=== PATIENT | female | born 1960 | race Caucasian/White ===

== ENCOUNTER 2016-09-16 19:14 | Emergency (ER) | payer BC ==
[~2016-09-16] VITALS: Ht 154.9 cm; Wt 64.9 kg
[~2016-09-16 19:14] MED LIST: LRT5 PO
[2016-09-16 19:24] VITALS: BP 163/91; PULSE 61; TEMP 36.8; O2SAT 95; Ht 154.9 cm; Wt 64.9 kg
[2016-09-16] MEDS ORDERED: XYLOCAINE 1%/SOD BICARB 20 ML VIAL INFIL ONE (19:33)
[2016-09-16] MEDS ORDERED: ACETAMINOPHEN 500 MG TAB PO STA (19:51)
--- NOTE | 2016-09-16 20:11 | DIAGNOSTIC IMAGING REPORT ---
MAXILLOFACIAL CT CT DOSE: 1300.83 mGy.cm HISTORY: Jaw pain s/p trip and fall TECHNIQUE: Multiaxial CT images of the maxillofacial region were performed and reformatted in the coronal plane without the use of contrast. COMPARISON: None. FINDINGS: The visualized cervical spine, skull base, pterygoid plates, nasal bones, lamina papyracea, orbital floors, mandible, and zygomatic arches are intact. No fractures. The orbits are unremarkable. A 3 mm focal defect within the lateral wall of the left max a sinus. This is of doubtful clinical significance. Mild mucosal thickening within the maxillary sinuses and partial opacification of the ethmoid air cells. The mastoid air cells are clear. Focal skin laceration with soft tissue swelling within the right anterior chain. IMPRESSION: No fractures within the maxillofacial region. Focal skin laceration with soft tissue swelling within the right anterior chin. Electronically signed by: Sukhdeep Paul M.D. 09/16/2016 8:10 PM Dictated Date/Time: 09/16/2016 8:01 PM
--- NOTE | 2016-09-16 20:37 | EMERGENCY ROOM VISIT NOTE ---
History First contact with patient: 19:31 Chief Complaint: LACERATION/CUT (SUT/DERMABOND) Stated Complaint: FALL LAC TO CHIN Nursing Triage Summary: Pt reports she fell, tripped and hit face. pain to right jaw up. Lac to chin. abrasion to right elbow. denies loc History of Present Illness The patient is a 56 year old female who presents to the Emergency Room with complaints of injuries after she tripped and fell while walking out of [facility] . She reports tripping on an uneven sidewalk and falling face first to the ground. They believe that she fell onto the curb. The patient complains of a cut under the chin as well as right-sided jaw pain. She denies any significant chest or neck pain. She does report an abrasion to the right elbow , but denies any significant worsening pain with range of motion of the elbow. She rates her discomfort a 7 out of 10. She denies any loss of consciousness, headache, nausea or blurred vision. Tetanus immunization is up-to-date. Review of Systems 10 system review was performed and was negative except for pertinent positives and negatives as indicated in history of present illness Past Medical/Surgical History Medical Problems: (1) Pneumonia Surgical Problems: (1) History of hysterectomy Family History No significant family history Social History Smoking Status: Former Smoker Alcohol Use: none Marital Status: Occupation Status: employed Current/Historical Medications Scheduled Hydrocodone/Acetaminophen 5MG/500MG (Vicodin 5MG/500MG), 1-2 TAB PO Q4-6HR PRN Miscellaneous Medications None (Patient States No Home Meds) Allergies Coded Allergies: No Known Allergies (Verified Allergy, Unknown, 11/07/03) Physical Exam Vital Signs Date Time Temp Pulse Resp B/P Pulse Ox O2 Delivery O2 Flow Rate FiO2 09/16/16 19:24 36.8 61 18 163/91 95 Room Air Physical Exam CONSTITUTIONAL: Healthy and well nourished. Alert and oriented X 3 with positive affect. Patient appears in moderate discomfort from pain. HEENT: Examination shows a 1 cm laceration under the right chin region. Movement of the mandible worsens her discomfort. She has no focal tenderness over the TMJ. Pupils equal, round and reactive. No epistaxis, subconjunctival hemorrhage, hemotympanum, raccoon's eyes or Lowe sign. NECK: The patient has generalized tenderness to palpation of the right lateral and right anterolateral cervical musculature. She has no focal tenderness through the central cervical spine or paraspinous muscles. RESPIRATORY: Clear to auscultation bilaterally with no wheezing, crackles, rhonchi or stridor. CARDIOVASCULAR: Regular rate and rhythm with no murmurs, rubs or gallops. GASTROINTESTINAL: Bowel sounds present in all quadrants. Soft and nontender to palpation. MUSCULOSKELETAL: Examination shows minimal tenderness to palpation over the right anterior chest wall, clavicle and acromioclavicular joint. Range of motion of the right shoulder and elbow does not cause any discomfort. She has a superficial abrasion to the right posterior elbow. INTEGUMENTARY: No rash or other significant dermatologic conditions noted. NEUROLOGIC: No focal neurologic deficits noted. Right hand and fingers are sensory intact. Medical Decision & Procedures ER Provider Diagnostic Interpretation: Noncontrast CT of the facial bones does not show any mandible bone fracture or TMJ dislocation. Radiologist report is as follows: MAXILLOFACIAL CT CT DOSE: 1300.83 mGy.cm HISTORY: Jaw pain s/p trip and fall TECHNIQUE: Multiaxial CT images of the maxillofacial region were performed and reformatted in the coronal plane without the use of contrast. COMPARISON: None. FINDINGS: The visualized cervical spine, skull base, pterygoid plates, nasal bones, lamina papyracea, orbital floors, mandible, and zygomatic arches are intact. No fractures. The orbits are unremarkable. A 3 mm focal defect within the lateral wall of the left max a sinus. This is of doubtful clinical significance. Mild mucosal thickening within the maxillary sinuses and partial opacification of the ethmoid air cells. The mastoid air cells are clear. Focal skin laceration with soft tissue swelling within the right anterior chain. IMPRESSION: No fractures within the maxillofacial region. Focal skin laceration with soft tissue swelling within the right anterior chin. Medications Administered Medications (Trade) Dose Ordered Sig/Kaylee Route Start Time Stop Time Status Last Admin Dose Admin Acetaminophen (Tylenol Tab) 1,000 mg NOW STAT PO 09/16/16 19:51 09/16/16 19:52 DC 09/16/16 20:02 1,000 MG Procedure Chin laceration repair was performed under local anesthesia after receiving verbal consent from the patient. Using buffered 1% lidocaine without epinephrine, good local anesthesia was administered. The wound was then peripherally cleansed with iodine, then irrigated with normal saline. Exploration of the wound does not show any underlying debris. The wound was then approximated using 6-0 nylon simple interrupted sutures 4. Bacitracin was applied. ED Course Patient history and physical exam were performed. Nurse's notes were reviewed. Vital signs were reviewed and were normal. An ice pack was applied. The patient initially refused any analgesics, but then agreed to taking Tylenol [address] of the facial bones was normal. Laceration repair was performed under local anesthesia. The patient was provided additional verbal and written wound care instructions. Ice for swelling. Ibuprofen and Tylenol in alternating fashion as needed for pain. Suture removal in 5-7 days, or seek reevaluation sooner for any signs of wound infection. I also encouraged a soft food diet to minimize any worsening mandible muscular pain. The patient was happy with plan of care, voiced understanding of all discharge instructions, and rated her pain a 4 out of 10 at the time of discharge. Impression Primary Impression: Facial laceration Additional Impressions: Mandible contusion Cervical strain, acute Fall from slip, trip, or stumble Departure Information Referrals Jessica Savage PA-C (PCP) Patient Instructions My [facility] Problem Qualifiers Primary Impression: Facial laceration Encounter type: initial encounter Qualified Codes: S01.81XA - Laceration without foreign body of other part of head, initial encounter Additional Impressions: Cervical strain, acute Encounter type: initial encounter Qualified Codes: S16.1XXA - Strain of muscle, fascia and tendon at neck level, initial encounter Fall from slip, trip, or stumble Encounter type: initial encounter Qualified Codes: W01.0XXA - Fall on same level from slipping, tripping and stumbling without subsequent striking against object, initial encounter
== END 2016-09-16 20:40 | disposition home or self-care (01) ==
LOC: C.EDB 19:15 → C.EDD 20:40
DX: S01.81XA Laceration without foreign body of other part of head, initial encounter (principal); S16.1XXA Strain of muscle, fascia and tendon at neck level, initial encounter; W01.0XXA Fall on same level from slipping, tripping and stumbling without subsequent striking against object, initial encounter; Y92.511 Restaurant or cafe as the place of occurrence of the external cause; Z87.01 Personal history of pneumonia (recurrent); Z87.891 Personal history of nicotine dependence

== ENCOUNTER → 2016-11-22 | Outpatient (CLI) | payer BC ==
--- NOTE | 2016-11-22 17:22 | DIAGNOSTIC IMAGING REPORT ---
TWO VIEW CHEST CLINICAL HISTORY: Chest tightness. Dyspnea. FINDINGS: PA and lateral chest radiographs are compared to study dated 08/05/2015. The cardiomediastinal silhouette is unremarkable. There is atherosclerotic calcification of the thoracic aorta. Linear atelectasis is present at the left lung base, and a calcified granuloma is similar to previous. The lungs and pleural spaces are otherwise clear. There is no pneumothorax. The skeletal structures appear osteopenic. Mild thoracic scoliosis is observed. IMPRESSION: No active disease in the chest. Electronically signed by: Trung Wing M.D. 11/22/2016 5:21 PM Dictated Date/Time: 11/22/2016 5:19 PM
== END | disposition home or self-care (01) ==
LOC: C.RAD 17:01
PROVIDERS: ATTEND Family Medicine
DX: R07.89 Other chest pain (principal); R06.02 Shortness of breath

== ENCOUNTER → 2017-03-13 | Outpatient (CLI) | payer BC ==
--- NOTE | 2017-03-13 15:31 | DIAGNOSTIC IMAGING REPORT ---
(RENAL)RETROPERITON COMP CLINICAL HISTORY: 57 years-old Female presenting with RT FLANK PAIN. TECHNIQUE: Real-time grayscale and limited color Doppler ultrasound imaging of the kidneys and bladder was performed. COMPARISON: 08/01/2008. FINDINGS: Right kidney: Normal echogenicity. Right kidney measures 9.6 cm. No hydronephrosis. No convincing evidence of calculus or mass. Normal perfusion. Left kidney: Normal echogenicity. Left kidney measures 10.3 cm. No hydronephrosis. No convincing evidence of calculus or mass. Normal perfusion. Bladder: No bladder wall thickening. Bilateral ureteral jets present. Other: None. IMPRESSION: 1. Normal renal ultrasound. No obstruction. Electronically signed by: Francisco Sanchez M.D. 03/13/2017 3:29 PM Dictated Date/Time: 03/13/2017 3:28 PM
== END | disposition home or self-care (01) ==
LOC: C.ULTRBC 14:15
PROVIDERS: ATTEND Internal Medicine
DX: R10.9 Unspecified abdominal pain (principal)